=== PATIENT | male | born 1945 | race Caucasian/White ===

== ENCOUNTER → 2016-07-30 | Outpatient (CLI) | payer OTHER, MEDICARE ==
[~2016-07-30] MED LIST: ADVIN50/60 INH; ALBU1AER9 INH; ALLO300T2 PO; ASPI1TAB83 PO; ATV1 PO; CARV12.52 PO; CLR10 PO; DXY100 PO; FLUT0.0529 NAE; FURO40TA3 PO; GLIM2TAB2 PO; LCTXP OR; LEVO150T PO; LPT/20 PO; MIRALAX PO; NITR0.4S UT; NRN/300 PO; OLME1TAB11 PO; OMEP20TA PO; OXYC-57 PO; POTA10TA PO; PRED50TA PO; RXC5 PO; SITA50TA5 PO; VANC1INJ94 IV
== END | disposition home or self-care (01) ==
LOC: C.PATHSPEC 14:06
PROVIDERS: ATTEND Family Medicine
DX: L72.0 Epidermal cyst (principal)

== ENCOUNTER → 2016-10-12 | Outpatient (CLI) | payer OTHER, MEDICARE ==
[2016-10-12 13:56] LABS: ESTIMATED AVERAGE GLUCOSE 154 mg/dl; HA1C FLAG Normal (Normal)
[2016-10-12 15:03] LABS: ALKALINE PHOSPHATASE 70 U/L (45-117); ALT/SGPT 24 U/L (12-78); AST/SGOT 17 U/L (15-37); BLOOD UREA NITROGEN 23 mg/dl (7-18); BUN/CREATININE RATIO 16.3 (10-20); CALCIUM 8.3 mg/dl (8.5-10.1); CARBON DIOXIDE 29 mmol/L (21-32); CHLORIDE 106 mmol/L (98-107); CHOLESTEROL 115 mg/dl (0-200); CHOLESTEROL/HDL RATIO 3.3; GLUCOSE 129 mg/dl (70-99); HDL CHOLESTEROL 35 mg/dl; POTASSIUM 3.9 mmol/L (3.5-5.1); PROSTATE SPECIFIC ANTIGEN 0.571 ng/ml (0.000-4.000); SODIUM 141 mmol/L (136-145)
[2016-10-12 15:04] LABS: LDL CHOLESTEROL CALCULATED 38 mg/dl; MAGNESIUM 2.2 mg/dl (1.8-2.4); TRIGLYCERIDES 212 mg/dl (0-150); VERY LOW DENSITY LIPOPROT CALC 42 mg/dl
== END ==
LOC: C.LABMFLN 10:32
PROVIDERS: ATTEND Family Medicine
DX: R39.11 Hesitancy of micturition (principal); I25.10 Atherosclerotic heart disease of native coronary artery without angina pectoris; E11.9 Type 2 diabetes mellitus without complications; E03.9 Hypothyroidism, unspecified; E78.00 Pure hypercholesterolemia, unspecified

== ENCOUNTER → 2017-02-24 | Outpatient (CLI) | payer OTHER, MEDICARE ==
--- NOTE | 2017-03-02 12:17 | CODING QUERY NO DIAGNOSIS ---
TREATMENT RENDERED WITHOUT A DIAGNOSIS Dr. Martinez, To promote full compliance with coding requirements relating to patient care, physician participation is requested in all cases of embedded systems software engineer uncertainty. Please assist us with providing a diagnosis/symptom for the test(s) below: A diagnosis/symptom was not documented on your Order. A valid diagnosis/symptom is required to bill all insurances. Please remember that we are unable to code a diagnosis of rule out, probable, possible, questionable, or suspected. Tests that require a diagnosis: * GRAM STAIN, DIRECT SMEAR DIAGNOSIS: * M.I.C. SENSITIVITY DIAGNOSIS: * ID, CULTURE ISOLATE DIAGNOSIS: * CULTURE, BACTERIAL, ANY SOURCE DIAGNOSIS: * CULTURE, BACT., DEF; ANY SOURCE DIAGNOSIS: DATE OF SERVICE: 02/24/17 Provider Signature: Date: Thank you F[facility] Once completed, please kindly fax back to [phone] For questions please call [phone]
== END | disposition home or self-care (01) ==
LOC: C.LABSPEC 17:16
PROVIDERS: ATTEND Orthopaedic Surgery
DX: S61.011A Laceration without foreign body of right thumb without damage to nail, initial encounter (principal); X58.XXXA Exposure to other specified factors, initial encounter

== ENCOUNTER 2017-02-26 13:48 | Inpatient (IN) | payer OTHER, MEDICARE ==
[~2017-02-26] VITALS: Ht 177.8 cm; Wt 134.0 kg
[~2017-02-26 13:48] MED LIST changes: -DXY100 PO; -LCTXP OR; -PRED50TA PO; -VANC1INJ94 IV
[2017-02-26] MEDS ORDERED: GLUCAGON FOR INJ 1 MG VIAL SQ PRN (16:00)
[2017-02-26] MEDS ORDERED: MAGNESIUM HYDROXIDE SUSP 30 ML UDC PO PRN (16:00)
[2017-02-26] MEDS ORDERED: GLUCOSE 10 TABS/TUBE PO PRN (16:00)
[2017-02-26] MEDS ORDERED: ONDANSETRON INJ 2 MG/ML 2 ML VIAL IV PRN (16:00)
[2017-02-26] MEDS ORDERED: ALUMINUM/MAGNESIUM/SIMETH (MAALOX MAX) 30 ML UDC PO PRN (16:00)
[2017-02-26] MEDS ORDERED: DEXTROSE 50% 50 ML SYR IV PRN (16:00)
[2017-02-26] MEDS ORDERED: GLUCOSE 40% GEL 15 GM TUBE PO PRN (16:00)
[2017-02-26] MEDS ORDERED: NITROGLYCERIN 0.4 MG SL PER TAB CHARGE UT PRN (16:00)
[2017-02-26] MEDS ORDERED: FLUTICASONE PROPIONATE NA SPR 16 GM BTL NAE PRN (16:00)
[2017-02-26] MEDS ORDERED: ALBUTEROL HFA 8 GM INHALER INH PRN (16:00)
[2017-02-26] MEDS ORDERED: ACETAMINOPHEN 325 MG TAB PO PRN (16:00)
[2017-02-26] MEDS ORDERED: LORAZEPAM 1 MG TAB PO PRN (16:00)
--- NOTE | 2017-02-26 16:31 | History and Physical ---
History & Physical Date & Time of Service: Feb 26, 2017 at 16:30 Chief Complaint: Cellulitis Of Right Thumb And Hand Primary Care Physician: Christopher Lemon M.D. History of Present Illness Source: patient Mr. Whitt is a 71 y/o male with PMHx of T2DM, COPD, and CAD who is a direct admission from [facility] for R thumb cellulitis. Patient sustained a laceration to the thumb from a saw approx. around January 22. He initially presented to [facility] for suturing. He did sustain a ruptured extensor tendon that was repair. Unfortunately he developed infection and underwent further repair of the tendon. He was initially placed on Keflex and developed significant diarrhea and minimal improvement in erythema of the thumb. He was then placed on Bactrim without relief of symptoms. He underwent I& D on 02/24 which revealed MRSA in deep wound cultures. He is experiencing pain in the thumb that is relieved with [place]. He denies fever/chills, CP, SOB, abdominal pain, N/V, dysuria, constipation/diarrhea. Past Medical/Surgical History 1. T2DM 2. CAD - 3 vessel disease - multiple consultations but unable to stent 3. COPD 4. Possible CKD Stage III Family History Kidney disease MOTHER, , Age:82 Lung Cancer SISTER, Myocardial Infarction FATHER, , Age:83 SISTER, , Age:58 Ovarian Cancer SISTER, , Age:38 Social History Smoking Status: Former Smoker Smokeless Tobacco Use: No Alcohol Use: none Drug Use: none Marital Status: Housing status: lives with family Occupational Status: retired Immunizations History of Influenza Vaccine: Unknown History of Tetanus Vaccine?: Unknown History of Pneumococcal: Unknown History of Hepatitis B Vaccine: Unknown Multi-Drug Resistant Organisms History of MDRO: Yes Type of MDRO: MRSA Allergies Coded Allergies: Adenosine (Unverified Allergy, Severe, ANAPHYLAXIS, 12/20/14) BRONCHIAL SPASM/ANAPHALACTIC SHOCK Fentanyl (Unverified Allergy, Intermediate, SHORTNESS OF BREATH, 12/20/14) Levofloxacin (Unverified Allergy, Intermediate, FACIAL SWELLING, 12/20/14) Home Medications Scheduled Allopurinol (Zyloprim), 300 MG PO QAM Aspirin (Aspirin), 81 MG PO QPM Atorvastatin (Atorvastatin Calcium), 40 MG PO QPM Carvedilol (Coreg), 12.5 MG PO BID Fluticasone Prop/Salmeterol (Advair Diskus 500/50 60 Dose), 1 PUFF INH BID Furosemide (Lasix), 40 MG PO QAM Gabapentin (Neurontin), 300 MG PO TID Glimepiride (Glimepiride), 4 MG PO NOON/PM Levothyroxine Sodium (Synthroid), 150 MCG PO QPM Loratadine (Claritin), 10 MG PO QPM Nitroglycerin (Nitrostat), 0.4 MG UT PRN Olmesartan Medoxomil (Benicar), 20 MG PO QPM Omeprazole (Omeprazole), 40 MG PO QAM Potassium Chloride (K-Tabs), 10 MEQ PO QAM Sitagliptin-Metformin Hcl (Janumet), 1 TAB PO BID [Miralax], 1 DOSE PO NOON Scheduled PRN Albuterol Sulfate (Proair Hfa), 1 INHA INH Q4H PRN for PRN Fluticasone Propionate (Nasal) (Flonase), 1-2 SPRAYS DERRICK DAILY PRN for PRN Lorazepam (Lorazepam), 1 MG PO Q6H PRN for Anxiety Oxycodone HCl (Oxycodone HCl), 5-10 MG PO Q4H PRN for Pain Oxycodone/Acetaminophen 5MG/325MG (Percocet 5MG/325MG), 1 TABLET PO Q8H PRN for Pain Review of Systems Constitutional: No fever, No chills, No weakness, No fatigue ENT: No nasal symptoms, No sore throat Respiratory: No cough, No shortness of breath Cardiovascular: No chest pain, No palpitations Abdomen: + constipation (no BM x 2 days), No pain, No nausea, No vomiting, No diarrhea Musculoskeletal: + joint pain (R thumb), + swelling (bilateral lower extremities), No calf pain Genitourinary - Male: No dysuria Neurologic: No numbness/tingling Hematologic / Lymphatic: No abnormal bleeding/bruising, No clotting problems Physical Exam General Appearance: WD/WN, no apparent distress Head: normocephalic, atraumatic Eyes: sclerae normal ENT: hearing grossly normal Neck: supple, no JVD, trachea midline Respiratory/Chest: lungs clear, normal breath sounds, no respiratory distress, no accessory muscle use Cardiovascular: regular rate, rhythm, no gallop, no murmur Abdomen/GI: normal bowel sounds, non tender, soft Back: no CVA tenderness Extremities/Musculoskelatal: no calf tenderness, + swelling (bilateral lower extremity edema), + pertinent finding (R thumb with sutures in place; mildly warm to touch; erythema extending to proximal portion of thumb (site marked); serosang discharge from suture site; cap refill immediate; radial pulse 2+; neg snuffbox tenderness; splint in place) Neurologic/Psych: alert, oriented x 3 Skin: normal color, warm/dry Diagnostics Laboratory Results Results Past 24 Hours Test 02/26/17 15:59 02/26/17 16:16 Range/Units Microbiology Results 02/26/17 Blood Culture, Ordered Pending 02/26/17 Blood Culture, Ordered Pending Impression Assessment and Plan Mr. Whitt is a 71 y/o male with PMHx of T2DM, COPD, ASHVIN on night CPAP, Hypothyroidism, HTN, and CAD who is a direct admission from [facility] for R thumb cellulitis. R Thumb Cellulitis - MRSA and Extensor Tendon Rupture S/P Repair: Failed Keflex and Bactrim - Vancomycin per pharmacy dosing - hopeful for IV Abx with oral conversion - XR - R/O bony involvement - Consult ID - assistance with duration of therapy and oral conversion and outpatient F/U - Consult orthopedics - discussed with Cheryl Martinez product/industry consultant for weekend JUANA Superimposed on Possible CKD Stage III: - Hold Lasix and Losartan and gentle hydration with NSS at 80 mL/hr COPD without Exacerbation: - Duonebs and Albuterol inhaler PRN - Symbicort BID and Singulair 10 mg daily T2DM with Neuropathy: - Hold oral agents - Lantus 20 units SC HS and SSI - Gabapentin 400 mg TID and 200 mg HS HTN: - Coreg 12.5 mg BID Hypothyroidism: - Levothyroxine 150 mcg daily ASHVIN on Night CPAP: - to bring in CPAP and may use own meds CAD - 3 Vessel Disease: - Per patient, he has had multiple evaluations and his vessels cannot be stented - he states CABG couldn't be performed either? - states he has significant stenosis in the LAD vessel - Atorvastatin 40 mg daily - may benefit from high dose - Will hold ASA for now in case of need to do anything surgical but will need instituted as soon as possible given extensive disease DVT Prophylaxis: SCDs; no chemical prophylaxis at this time in case of surgical intervention Code Status: FULL RESUSCITATION Disposition: - IV Abx 1-2 days with hopeful oral conversion - D/C dependent on clinical improvement Attending Addendum: I have physically seen and examined this patient, have directed the physician assistants medical activities, and agree with the H&P as noted above with the following exceptions as noted. The patient is awake, alert and oriented 3, well-developed and well-nourished , normocephalic and atraumatic, lying in bed and in no acute distress. HEENT--PERRL, EOMI, mucous membranes and oropharynx dry. Neck--supple, no JVD or bruits, thyroid normal, trachea midline, no adenopathy. Heart--normal S1 and S2, no extra beats, no murmurs, rubs or gallops. Lungs--clear bilaterally with good air movement, no respiratory distress, no accessory muscle use. Abdomen--normal bowel sounds and soft, nontender and nondistended, no hernias or masses, no organomegaly. Extremities--no cyanosis, clubbing. Bilateral pretibial 1+ pitting edema. Right thumb with sutures in place mildly warm and erythematous with serous sanguinous drainage, splint in place. Dermatologic--normal except as above. Neurologic--cranial nerves II through XII grossly intact, motor and sensory examination normal. Rheumatologic--normal except for decreased range of motion right hand and thumb. Psychiatric--normal affect. Assessment and Plan: Right thumb MRSA cellulitis/status post extensor tendon rupture repair/failure of outpatient therapy with Keflex and Bactrim-- Vancomycin IV per pharmacokinetic dosing X-ray now to assess for bony involvement, may need bone scan and/or bone biopsy Infectious disease consulted Consult orthopedics Dr. Martinez CAD medical management-- Continue coreg 12.5 mg by mouth twice a day. Hold aspirin for possible procedure. Acute on chronic kidney injury/hypertension-- Hold Lasix and losartan. Normal saline at 80 ML's per hour Serial BMP and magnesium levels. COPD-- Continue Symbicort and Singulair Albuterol HFA 2 puffs 4 times a day when necessary Duonebs every 4 hours when necessary Diabetes mellitus/GPN-- Lantus 20 units subcutaneous at bedtime Accu-Cheks before meals and at bedtime with NovoLog coverage per scale Gabapentin 400 mg by mouth 3 times a day and 200 mg at bedtime Obstructive sleep apnea-- Will use home CPAP Level of Care Med/Surg Advanced Directives Existing Advance Directive: No Existing Living Will: No Existing Power of Vc++ Developer: No Resuscitation Status FULL RESUSCITATION VTE Prophylaxis VTE Risk Assessment Done? Y/N: Yes Risk Level: Moderate Given or contraindicated: T.E.D. Stockings, SCD's Social Service Consult None Apply
[2017-02-26] MEDS ORDERED: VANCOMYCIN INJ 2,750 MG in SODIUM CHLORIDE 0.9% 500ML 500 ML IV STA (16:33)
[2017-02-26 16:39] VITALS: BP 122/67; PULSE 76; TEMP 37; O2SAT 93; Ht 177.8 cm; Wt 134.0 kg
--- NOTE | 2017-02-26 16:44 | Progress Note ---
Progress Note Date of Service Feb 26, 2017. Progress Note ID Consult Dictated #[id number] A/P: 1. thumb post op infection -MRSA -Continue vanco for now -Blood cultures pending, for x ray r/o osteo -If x ray negative for osteo and cultures negative, would transition to po doxy 100mg po bid with food -Assess response to IV abx -thank you
[2017-02-26] MEDS ORDERED: VANCOMYCIN CONSULT ACTIVE PRN (16:45)
[2017-02-26 17:24] LABS: HEMATOCRIT 37.8 % (42-52); MEAN CELL VOLUME 95.7 fL (80-100); MEAN CORPUSCULAR HEMOGLOBIN 30.6 pg (25-34); MEAN PLATELET VOLUME 9.5 fL (7.4-10.4); PLATELET COUNT 197 K/uL (130-400); RED BLOOD COUNT 3.95 M/uL (4.7-6.1); WHITE BLOOD COUNT 6.93 K/uL (4.8-10.8)
[2017-02-26 17:44] LABS: BUN/CREATININE RATIO 8.9 (10-20); CALCIUM 9.4 mg/dl (8.5-10.1); CREATININE 2.1 mg/dl (0.60-1.40); POTASSIUM 3.8 mmol/L (3.5-5.1); URIC ACID 5.4 mg/dl (2.6-7.2)
[2017-02-26 17:47] LABS: ALB/GLOB RATIO 0.8 (0.9-2)
[2017-02-26] MEDS: POLYETHYLENE (MIRALAX) 17 GM PACK PO PRN (18:41)
[2017-02-26] MEDS: HYDROCODONE/ACETAMOPHEN 5/325MG TAB PO PRN (18:41)
[2017-02-26] MEDS: GABAPENTIN 400 MG CAP PO SCH (18:47)
[2017-02-26] MEDS: INSULIN ASPART 100 UNITS/ML 3 ML PEN SC SCH ×2 (18:53→21:00)
[2017-02-26] MEDS ORDERED: HydrALAZINE HCL 20 MG/ML VIAL IV. PRN (19:15)
[2017-02-26] MEDS ORDERED: ALBUT/IPRATROP 3MG/0.5MG NEB 3 ML VIAL INH PRN (20:00)
[2017-02-26] MEDS ORDERED: ALBUT/IPRATROP 3MG/0.5MG NEB 3 ML VIAL INH SCH (20:00)
--- NOTE | 2017-02-26 20:04 | Pharmacy Progress Note ---
Pharmacy Abx Initial Consult Date of Service Feb 26, 2017. Pharmacy Dosing Scope Date of Consult: 02/26/17 Consultation requested by: Ila Victor Pharmacy is consulted to initiate Vancomycin IV dosing therapy, order appropriate labs and adjust drug dose/frequency. Subjective The patient is a 71 year old male admitted on Feb 26, 2017 at 14:57. Objective Height (Feet): 5 Height (Inches): 10.00 Weight (Kilograms): 134.000 Vital Signs (Past 12Hrs) Vital Signs Past 12 Hours Date Time Temp Pulse Resp B/P (MAP) Pulse Ox O2 Delivery O2 Flow Rate FiO2 02/26/17 16:39 37.0 76 14 122/67 93 Room Air Lab Results (24Hrs) Laboratory Tests (24 Hours) Test 02/26/17 17:11 White Blood Count 6.93 K/uL (4.8-10.8) Micro Results Date/Time Source Procedure Growth Status 02/26/17 17:27 Blood Blood Culture Pending Received 02/26/17 17:10 Blood Blood Culture Pending Received Risk Factors for Resistance * History of infection with a multidrug-resistant organism: MRSA (deep drainage , thumb - 02/24/17) * Antimicrobial use within the last 90 days -- outpatient Keflex and Bactrim Assessment & Plan Assessment 71 year old male on IV Vancomycin for MRSA cellulitis of R hand and thumb * Patient underwent I&D on 02/24/17 * Recent outpatient treatment with Keflex (did not tolerate due to GI sxs) and Bactrim * ID on consult; awaiting X-ray to determine if any bone involvement * Patient appears to be in acute kidney failure; sCr = 2.1 mg/dL today with estimated CrCl ~44 mL/min. Baseline sCr ~1.4 mg/dL. Anticipate that renal function will be rapidly changing. Therefore, unable to safely initiate maintenance regimen at this time. Will give a one-time loading dose and follow random levels until renal function normalizes. Plan Vancomycin IV * Loading dose: 2750 mg (20 mg/kg) * Goal trough level for cellulitis r/o osteomyelitis : ~15 mcg/mL (up to 20 mcg/ mL if osteomyelitis confirmed) * Random level ordered for 02/27 with AM labs * Repeat dosing to be determined based on random level Pharmacy will continue to follow and will adjust dose/frequency as necessary. Thank you.
[2017-02-26] MEDS ORDERED: FLUTICASONE/SALMETEROL (ADVAIR) 500/50 INH 14 PUFF INH SCH (21:00)
[2017-02-26] MEDS ORDERED: OLMESARTAN MEDOXOMIL 20 MG TAB PO SCH (21:00)
[2017-02-26] MEDS ORDERED: LEVOTHYROXINE 150 MCG TAB PO SCH (21:00)
[2017-02-26] MEDS ORDERED: GABAPENTIN 300 MG CAP PO SCH (21:00)
[2017-02-26] MEDS ORDERED: FUROSEMIDE 40 MG TAB PO SCH (21:00)
[2017-02-26] MEDS ORDERED: ATORVASTATIN 40 MG TAB PO SCH (21:00)
--- NOTE | 2017-02-26 21:12 | DIAGNOSTIC IMAGING REPORT ---
RIGHT AND 3 VIEWS HISTORY: Right thumb swelling. R Thumb Cellulitis - R/O bony involvement Right COMPARISON: None. FINDINGS: There is no fracture or dislocation. Soft tissue swelling within the right thumb. No underlying cortical destruction to suggest osteomyelitis. Questionable linear lucency at the head of the proximal phalanx of the thumb may be due to the overlapping bony structures. No radiopaque foreign bodies. IMPRESSION: Soft tissue swelling within the right thumb consistent with a cellulitis. No underlying bony destruction to suggest osteomyelitis. Electronically signed by: Talib Alvarez M.D. 02/26/2017 9:11 PM Dictated Date/Time: 02/26/2017 9:07 PM
[2017-02-26] MEDS: CARVEDILOL 12.5 MG TAB PO SCH (21:52)
[2017-02-26] MEDS: POTASSIUM CHLORIDE 10 MEQ TABCR PO SCH (21:52)
[2017-02-26] MEDS: ATORVASTATIN 40 MG TAB PO SCH (21:52)
[2017-02-26] MEDS: MONTELUKAST SOD 10 MG TAB PO SCH (21:52)
[2017-02-26] MEDS: DOCUSATE SODIUM 100 MG CAP PO SCH (21:52)
[2017-02-26] MEDS: LORATADINE 10 MG TAB PO SCH (21:52)
[2017-02-26] MEDS: GABAPENTIN 100 MG CAP PO SCH (21:53)
[2017-02-26] MEDS: INSULIN GLARGINE SOLOSTAR 100 UNITS/ML 3 ML PEN SC SCH (21:55)
[2017-02-26] MEDS: BUDESONIDE/FORMOTEROL FUMARATE 160/4.5 60 PUFFS/INHALER INH SCH (21:57)
[2017-02-26] MEDS: SODIUM CHLORIDE 0.9% 1000ML 1,000 ML IV SCH (21:57)
[2017-02-26 23:44] VITALS: BP 153/67; PULSE 83; TEMP 36.7; O2SAT 96
[2017-02-27] MEDS: HYDROCODONE/ACETAMOPHEN 5/325MG TAB PO PRN ×2 (00:21→21:22)
--- NOTE | 2017-02-27 01:22 | INFECT. DISEASE CONSULTATION ---
DATE OF CONSULTATION: 02/26/2017 REQUESTING PHYSICIAN: Dr. Massey. HISTORY OF PRESENT ILLNESS: This is a 71-year-old gentleman who was admitted from the orthopedic office after he had worsening finger infection. He states that sometime ago he cut his left thumb on a saw. He did have tendon damage. He was seen by Dr. Martinez and this was repaired some weeks ago. Subsequent to that, he was having increasing erythema and an open wound. After he had this tendon repair, he had continued drainage from the wound and had followed up with orthopedic surgery a few days ago. At that time, he underwent an I&D in the office and a culture was obtained. This culture is dated February 24 and is growing MRSA. He was placed on Bactrim, but is not having significant improvement. He presented today for followup and was subsequently admitted for admission and IV antibiotics for cellulitis with failure of outpatient therapy with Bactrim. He was tolerating Bactrim well. He denies any fevers or chills at home. He states he does not have any worsening pain but still has significant pain. He denies cough, shortness breath, nausea, vomiting, diarrhea or abdominal pain. All remaining review of systems are unremarkable except are as noted. He is placed on vancomycin here empirically. White blood cell count is pending. All laboratory studies are pending, no micro has been obtained; however, blood cultures are ordered and pending. Again, his culture from the is growing MRSA. It is sensitive to Bactrim. He has not had any imaging of his hand, but an x-ray will be ordered today. PAST MEDICAL HISTORY: Type 2 diabetes, hypertension, COPD, coronary artery disease, hypothyroidism, and gout. PAST SURGICAL HISTORY: Significant for back surgery, shoulder surgery, cataract repair, heart catheterization, knee surgeries knee replacement, shoulder surgery and thyroid removal. ALLERGIES: INCLUDE ADENOSINE, FENTANYL AND LEVAQUIN. FAMILY HISTORY: Noncontributory. SOCIAL HISTORY: Unremarkable. CURRENT MEDICATIONS: Include allopurinol, Protonix, Synthroid, Cozaar, Lipitor, Coreg, Advair, Claritin, Lipitor, Lasix, Neurontin, potassium, Symbicort, Singulair, DuoNebs, vancomycin, Tylenol, Maalox, MiraLax and Zofran. PHYSICAL EXAMINATION: VITAL SIGNS: He is afebrile. Vital signs are currently pending. GENERAL: He is out of bed in the chair. He is in no acute distress. HEENT: Mucous membranes are moist. HEART: Regular. LUNGS: Clear bilaterally. ABDOMEN: Soft, nontender, nondistended. EXTREMITIES: There is no edema. Examination of the left thumb reveals sutures to be intact. There is erythema in the thumb, but has not progressed to the dorsal. The hand range of motion is within normal limits. Sensation is intact. There is tenderness to palpation. There is minimal serous weeping from the incision itself. There is no nakul pus. ALL LABORATORY STUDIES: pending including a CBC and chemistry panel. Blood cultures are pending. IMAGING: Pending. ASSESSMENT AND PLAN: A postoperative wound infection with methicillin-resistant staphylococcus aureus. He will be continued empirically on vancomycin pending the results of blood cultures as well as imaging to rule out any associated osteomyelitis. Certainly, if he has improvement, he could be transitioned to oral antibiotics. My recommendation would be deescalating to doxycycline 100 mg by mouth twice daily with food, if there is no evidence of osteo and he does have clinical improvement over the next 24-48 hours. We will follow along with you. Thank you for this consultation. MEHDI
[2017-02-27] MEDS: LEVOTHYROXINE 150 MCG TAB PO SCH (05:36)
[2017-02-27 07:21] VITALS: BP 131/77; PULSE 65; TEMP 36.6; O2SAT 94
[2017-02-27] MEDS: SODIUM CHLORIDE 0.9% 1000ML 1,000 ML IV SCH ×2 (07:35→21:29)
[2017-02-27] MEDS: BUDESONIDE/FORMOTEROL FUMARATE 160/4.5 60 PUFFS/INHALER INH SCH ×2 (07:36→21:29)
[2017-02-27 07:38] LABS: BUN/CREATININE RATIO 10.6 (10-20); CREATININE 1.8 mg/dl (0.60-1.40)
[2017-02-27] MEDS: DOCUSATE SODIUM 100 MG CAP PO SCH ×2 (07:38→21:14)
[2017-02-27] MEDS: CARVEDILOL 12.5 MG TAB PO SCH ×2 (07:38→21:14)
[2017-02-27] MEDS: POTASSIUM CHLORIDE 10 MEQ TABCR PO SCH ×2 (07:39→21:15)
[2017-02-27] MEDS: PANTOprazole SOD 40 MG TAB PO SCH (07:40)
[2017-02-27] MEDS: GABAPENTIN 400 MG CAP PO SCH ×3 (07:40→21:14)
[2017-02-27] MEDS: ALLOPURINOL 300 MG TAB PO SCH (07:41)
[2017-02-27 07:49] LABS: HEMATOCRIT 33.8 % (42-52); MEAN CELL VOLUME 94.2 fL (80-100); MEAN CORPUSCULAR HEMOGLOBIN 30.9 pg (25-34); MEAN CORPUSCULAR HGB CONC 32.8 g/dl (32-36); MEAN PLATELET VOLUME 9.6 fL (7.4-10.4); PLATELET COUNT 175 K/uL (130-400); RED BLOOD COUNT 3.59 M/uL (4.7-6.1); WHITE BLOOD COUNT 4.54 K/uL (4.8-10.8)
[2017-02-27 08:49] VITALS: PULSE 69; O2SAT 96
[2017-02-27] MEDS ORDERED: LOSARTAN POTASSIUM 50 MG TAB PO SCH (09:00)
[2017-02-27] MEDS ORDERED: FUROSEMIDE 40 MG TAB PO SCH ×2 (09:00)
[2017-02-27] MEDS ORDERED: POTASSIUM CHLORIDE 10 MEQ TABCR PO SCH (09:00)
[2017-02-27] MEDS: INSULIN ASPART 100 UNITS/ML 3 ML PEN SC SCH ×4 (10:40→21:17)
[2017-02-27 15:24] VITALS: BP 122/74; PULSE 63; TEMP 36.7; O2SAT 95
[2017-02-27] MEDS ORDERED: VANCOMYCIN INJ 1,750 MG in SODIUM CHLORIDE 0.9% 500ML 500 ML IV SCH (17:00)
--- NOTE | 2017-02-27 17:10 | Progress Note ---
Subjective Date of Service: Feb 27, 2017. Subjective Pt evaluation today including: conversation w/ patient, physical exam, lab review, review of inpatient medication list Review of Systems Constitutional: No see HPI, No fever, No chills, No sweats, No weight loss, No weakness, No fatigue, No problem reported Eyes: No see HPI, No worsening of vision, No eye pain, No redness, No discharge , No diplopia, No problem reported ENT: No see HPI, No hearing loss, No unusual epistaxis, No nasal symptoms, No sore throat, No tinnitus, No dental problems, No trouble swallowing, No problem reported Respiratory: No see HPI, No cough, No sputum, No wheezing, No shortness of breath, No dyspnea on exertion, No dyspnea at rest, No hemoptysis, No problem reported Cardiac: No see HPI, No chest pain, No orthopnea, No PND, No edema, No claudication, No palpitations, No problem reported Abdomen: No see HPI, No pain, No nausea, No vomiting, No diarrhea, No constipation, No GI bleeding, No problem reported Musculoskeletal: No see HPI, No joint pain, No muscle pain, No swelling, No calf pain, No problem reported Male : No see HPI, No dysuria, No urinary frequency, No incontinence, No nocturia more than once/night, No slowing stream, No hematuria, No sexual dysfunction, No problem reported Neurologic: No see HPI, No memory loss, No paralysis, No weakness, No numbness/ tingling, No vertigo, No balance problems, No problem reported Psychiatric: No see HPI, No depression symptoms, No anhedonism, No anxiety, No insomnia, No substance abuse, No problem reported Heme: No see HPI, No abnormal bleeding/bruising, No clotting problems, No swollen lymph nodes, No night sweats, No problem reported Endo: No see HPI, No fatigue, No excessive thirst, No excessive urination, No problem reported Skin: No see HPI, No rash, No itch, No new/changing skin lesions, No color change, No bleeding, No problem reported Objective Vital Signs Date Time Temp Pulse Resp B/P (MAP) Pulse Ox O2 Delivery O2 Flow Rate FiO2 02/27/17 15:24 36.7 63 18 122/74 (90) 95 Room Air 02/27/17 08:49 69 18 96 Room Air 02/27/17 07:30 Room Air CPAP 02/27/17 07:21 36.6 65 18 131/77 (95) 94 Room Air 02/27/17 00:15 Room Air CPAP 02/26/17 23:44 36.7 83 16 153/67 (95) 96 BiPAP 02/26/17 16:39 37.0 76 14 122/67 93 Room Air Physical Exam General Appearance: no apparent distress, + obese ENT: normal ENT inspection, hearing grossly normal Neck: supple Respiratory/Chest: chest non-tender, lungs clear, normal breath sounds, no respiratory distress, no accessory muscle use Cardiovascular: regular rate, rhythm, no edema, no gallop, no JVD, no murmur Abdomen: normal bowel sounds, non tender, soft, no organomegaly Extremities: normal range of motion, non-tender, normal inspection, no pedal edema Neurologic/Psychiatric: police detention attendant II-XII nml as tested, no motor/sensory deficits, alert, normal mood/affect, oriented x 3 Skin: normal color, warm/dry, + rash Laboratory Results Last 24 Hours Test 02/26/17 17:10 02/26/17 17:11 02/26/17 17:17 02/26/17 19:48 Sodium Level 137 mmol/L Potassium Level 3.8 mmol/L Chloride Level 101 mmol/L Carbon Dioxide Level 27 mmol/L Anion Gap 9.0 mmol/L Blood Urea Nitrogen 19 mg/dl Creatinine 2.10 mg/dl Est Creatinine Clear Calc Drug Dose 43.8 ml/min Estimated GFR () 35.4 Estimated GFR (Non- 30.5 BUN/Creatinine Ratio 8.9 Random Glucose 229 mg/dl Uric Acid 5.4 mg/dl Calcium Level 9.4 mg/dl Total Bilirubin 0.3 mg/dl Aspartate Amino Transf (AST/SGOT) 19 U/L Alanine Aminotransferase (ALT/SGPT) 22 U/L Alkaline Phosphatase 71 U/L Total Protein 7.7 gm/dl Albumin 3.5 gm/dl Globulin 4.2 gm/dl Albumin/Globulin Ratio 0.8 White Blood Count 6.93 K/uL Red Blood Count 3.95 M/uL Hemoglobin 12.1 g/dL Hematocrit 37.8 % Mean Corpuscular Volume 95.7 fL Mean Corpuscular Hemoglobin 30.6 pg Mean Corpuscular Hemoglobin Concent 32.0 g/dl RDW Standard Deviation 47.6 fL RDW Coefficient of Variation 13.6 % Platelet Count 197 K/uL Mean Platelet Volume 9.5 fL Bedside Glucose 228 mg/dl 143 mg/dl Test 02/27/17 06:43 02/27/17 08:14 02/27/17 12:14 White Blood Count 4.54 K/uL Red Blood Count 3.59 M/uL Hemoglobin 11.1 g/dL Hematocrit 33.8 % Mean Corpuscular Volume 94.2 fL Mean Corpuscular Hemoglobin 30.9 pg Mean Corpuscular Hemoglobin Concent 32.8 g/dl RDW Standard Deviation 46.7 fL RDW Coefficient of Variation 13.5 % Platelet Count 175 K/uL Mean Platelet Volume 9.6 fL Sodium Level 140 mmol/L Potassium Level 4.0 mmol/L Chloride Level 106 mmol/L Carbon Dioxide Level 28 mmol/L Anion Gap 6.0 mmol/L Blood Urea Nitrogen 19 mg/dl Creatinine 1.80 mg/dl Est Creatinine Clear Calc Drug Dose 51.1 ml/min Estimated GFR () 42.6 Estimated GFR (Non- 36.8 BUN/Creatinine Ratio 10.6 Random Glucose 147 mg/dl Calcium Level 9.0 mg/dl Random Vancomycin Level 15.1 mcg/ml Bedside Glucose 150 mg/dl 190 mg/dl Assessment and Plan 71 years old man with Hxof DMII, COPD, HTN, CAD, ASHVIN and hypothyoidism recently had a table saw accident on his R thumb required multiple surgical procedures (repair of tendon followed by wound infection and I&D) presented for IV Abx R thumb post surgical wound infection / MRSA continue Vanco IV Dr. Steinberg consult appreciated Xray riht hand ordered to R/O osteo considering oral Doxy. Consult orthopedics / Dr. Martinez JUANA / CKD stage III continue holding nephrotoxic / lasix/losartan COPD w/o exacerbation continue Nebulizers ordered his home rescue inhaler DMII insulin req continue insulin / gabapentin for neuropathy HTN continue Coreg ASHVIN/ continue CPAP CAD/Dyslipidemia as per patient inoperable continue lipitor hawa with holding ASA for now Hypothyroidism / continue synthroid DVT prophylaxis start heparin SQ Code Status: FULL RESUSCITATION
[2017-02-27 18:31] LABS: PARTIAL THROMBOPLASTIN RATIO 1.2
[2017-02-27] MEDS: MONTELUKAST SOD 10 MG TAB PO SCH (21:14)
[2017-02-27] MEDS: ATORVASTATIN 40 MG TAB PO SCH (21:14)
[2017-02-27] MEDS: LORATADINE 10 MG TAB PO SCH (21:14)
[2017-02-27] MEDS: INSULIN GLARGINE SOLOSTAR 100 UNITS/ML 3 ML PEN SC SCH (21:18)
[2017-02-27] MEDS: ALBUTEROL HFA 8 GM INHALER INH PRN (21:21)
[2017-02-27] MEDS: HEPARIN SOD 5000 UNIT/0.5 ML CARP SQ SCH (21:21)
--- NOTE | 2017-02-27 22:47 | ORTHOPEDIC CONSULTATION ---
DATE OF CONSULTATION: 02/27/2017 CHIEF COMPLAINT: Right thumb pain and swelling. HISTORY OF PRESENT ILLNESS: Edis is a patient well known to me. He is 2 days status post irrigation and debridement of a laceration on the dorsal aspect of the thumb with tendon repair. He presents with cultures documenting MRSA and he presents with persistent pain and swelling with worsening redness over the thumb. He was admitted from our office due to failure of outpatient management of infection. PAST MEDICAL HISTORY: Includes chronic kidney disease, COPD, type 2 diabetes with neuropathy. MEDICATIONS: Include Lantus, gabapentin, and he was on Bactrim as an outpatient. Infectious disease has been consulted and he has been empirically placed on vancomycin. OBJECTIVE: Right thumb exam shows decreased erythema compared to prior markings. I did not pick any purulent drainage. He has negative [place] signs. Surgical incision is clean, dry and intact. Three views of the right hand does not show evidence of acute fracture or dislocation. Soft tissue swelling is seen. No evidence of osteomyelitis. ASSESSMENT: 1. Hospital day 1 for right thumb infection. 2. Diabetes. 3. Chronic kidney disease. PLAN: At this point in time, I do not see any surgical indications. He does appear to have fairly low response at this point to intravenous antibiotics. We will defer to infectious disease appropriate antibiotic course. We will continue to follow while in the hospital. He does exhibit clinical improvement over the past 24 hours.
[2017-02-27 23:14] VITALS: BP 141/84; PULSE 76; TEMP 36.5; O2SAT 94
[2017-02-27] MEDS: GABAPENTIN 100 MG CAP PO SCH (23:34)
[2017-02-28] MEDS: HYDROCODONE/ACETAMOPHEN 5/325MG TAB PO PRN (03:01)
[2017-02-28] MEDS: LEVOTHYROXINE 150 MCG TAB PO SCH (05:27)
[2017-02-28 06:26] LABS: BASO % 0.2 %; BASO ABS # 0.01 K/uL (0-0.2); COMPLETE YES; EOS % 4.7 %; HEMATOCRIT 33.4 % (42-52); IG% 0.9 %; LYMPH % 27.4 %; LYMPH ABS # 1.17 K/uL (1.2-3.4); MEAN CELL VOLUME 94.9 fL (80-100); MEAN CORPUSCULAR HEMOGLOBIN 30.1 pg (25-34); MEAN CORPUSCULAR HGB CONC 31.7 g/dl (32-36); MEAN PLATELET VOLUME 9.1 fL (7.4-10.4); MONO % 5.9 %; NEUT % 60.9 %; PLATELET COUNT 159 K/uL (130-400); RED BLOOD COUNT 3.52 M/uL (4.7-6.1); WHITE BLOOD COUNT 4.27 K/uL (4.8-10.8)
[2017-02-28 07:14] LABS: CREATININE 1.4 mg/dl (0.60-1.40)
[2017-02-28 07:28] VITALS: BP 139/71; PULSE 66; TEMP 36.4; O2SAT 92
--- NOTE | 2017-02-28 08:11 | Orthopedic Progress Note ---
Orthopedic Progress Note Date of Service Feb 28, 2017. Subjective Reports: feeling well Additional Notes: PATIENT STATES HIS THUMB IS FEELING BETTER. REDNESS IS IMPROVED. HE DID BUMP IT ON THE TABLE LAST NIGHT CAUSING AN INCREASE IN PAIN BUT WAS RELIEVED WITH NORCO. Objective N/V intact, capillary refill less than 2 sec., dressing C/D/I, A&O x3 Date Time Temp Pulse Resp B/P (MAP) Pulse Ox O2 Delivery O2 Flow Rate FiO2 02/28/17 07:28 36.4 66 18 139/71 (93) 92 Room Air 02/27/17 23:45 Room Air 02/27/17 23:14 36.5 76 16 141/84 (103) 94 Room Air 02/27/17 17:20 Room Air 02/27/17 15:24 36.7 63 18 122/74 (90) 95 Room Air 02/27/17 08:49 69 18 96 Room Air Laboratory Results 24 Hours: Test 02/27/17 18:11 02/28/17 06:04 Prothromb Time International Ratio 1.0 Prothrombin Time 11.0 SECONDS White Blood Count 4.27 K/uL Red Blood Count 3.52 M/uL Hemoglobin 10.6 g/dL Hematocrit 33.4 % Mean Corpuscular Volume 94.9 fL Mean Corpuscular Hemoglobin 30.1 pg Mean Corpuscular Hemoglobin Concent 31.7 g/dl Platelet Count 159 K/uL Mean Platelet Volume 9.1 fL Neutrophils (%) (Auto) 60.9 % Lymphocytes (%) (Auto) 27.4 % Monocytes (%) (Auto) 5.9 % Eosinophils (%) (Auto) 4.7 % Basophils (%) (Auto) 0.2 % Neutrophils # (Auto) 2.60 K/uL Lymphocytes # (Auto) 1.17 K/uL Monocytes # (Auto) 0.25 K/uL Eosinophils # (Auto) 0.20 K/uL Basophils # (Auto) 0.01 K/uL Assessment & Plan Assessment: RIGHT THUMB CELLULITIS. Plan: SPOKE WITH PHARMACY. WILL CONTINUE ANOTHER DOSE OF IV VANCO TODAY. NO EVIDENCE OF OSTEO, WILL LIKELY DC HOME ON DOXY PER ID. NO SURGICAL INTERVENTION NEEDED AT THIS TIME PER DR. VILLALOBOS.
--- NOTE | 2017-02-28 08:14 | Consultant Recommendations ---
Digital Media Buyer Recommendations Date of Service Feb 28, 2017. Digital Media Buyer Recommendations FOLLOW UP WITH DR. VILLALOBOS IN 7-10 DAYS [phone] KEEP DRESSING CLEAN AND DRY ANTIBIOTICS PER DR. ROCK RECOMMENDATIONS.
[2017-02-28] MEDS: SODIUM CHLORIDE 0.9% 1000ML 1,000 ML IV SCH ×2 (08:36→20:42)
[2017-02-28] MEDS: ALBUTEROL HFA 8 GM INHALER INH PRN ×2 (08:37→18:00)
[2017-02-28] MEDS: BUDESONIDE/FORMOTEROL FUMARATE 160/4.5 60 PUFFS/INHALER INH SCH ×2 (08:37→20:35)
[2017-02-28] MEDS: ALLOPURINOL 300 MG TAB PO SCH (08:38)
[2017-02-28] MEDS: POTASSIUM CHLORIDE 10 MEQ TABCR PO SCH ×2 (08:38→20:46)
[2017-02-28] MEDS: PANTOprazole SOD 40 MG TAB PO SCH (08:38)
[2017-02-28] MEDS: GABAPENTIN 400 MG CAP PO SCH ×3 (08:38→20:46)
[2017-02-28] MEDS: CARVEDILOL 12.5 MG TAB PO SCH ×2 (08:40→20:46)
[2017-02-28] MEDS: DOCUSATE SODIUM 100 MG CAP PO SCH ×2 (08:41→20:44)
[2017-02-28] MEDS: INSULIN ASPART 100 UNITS/ML 3 ML PEN SC SCH ×4 (08:47→21:59)
[2017-02-28] MEDS: HEPARIN SOD 5000 UNIT/0.5 ML CARP SQ SCH ×2 (08:47→21:57)
[2017-02-28] MEDS ORDERED: VANCOMYCIN INJ 1,500 MG in SODIUM CHLORIDE 0.9% 500ML 500 ML IV SCH (10:00)
[2017-02-28] MEDS ORDERED: LCTXP OR (11:01)
[2017-02-28] MEDS ORDERED: VANC1INJ94 IV (11:01)
--- NOTE | 2017-02-28 11:06 | Discharge Instructions ---
Discharge Instructions Date of Service Feb 28, 2017. Admission Reason for Admission: Cellulitis Of Right Thumb And Hand Discharge Discharge Diagnosis / Problem: right thumb cellulitis Discharge Goals Goal(s): Decrease discomfort Activity Recommendations Activity Limitations: resume your previous activity . Instructions / Follow-Up Instructions / Follow-Up Follow up with Dr. Martinez in 7-10 days wound care as instructed by Dr. Martinez ; dry sterile dressing daily Please obtain stat trough level daily prior to vanco dose, inform pharmacy who is on consult to adjust dose Current Hospital Diet Patient's current hospital diet: Diabetes Type 2 Diet, AHA Diet (Heart Healthy) Discharge Diet Recommended Diet: AHA Diet (Heart Healthy), Diabetes Type 2 Diet Fluid Restriction: 1800 ml (7 cups) Pending Studies Studies pending at discharge: yes List of pending studies: Please obtain stat trough level daily prior to vanco dose, inform pharmacy who is on consult to adjust dose Laboratory Results Hemoglobin A1c Test 02/28/17 06:04 Range/Units Medical Emergencies . Who to Call and When: Medical Emergencies: If at any time you feel your situation is an emergency, please call 911 immediately. . Non-Emergent Contact Non-Emergency issues call your: Primary Care Provider, Surgeon Call Non-Emergent contact if: you have a fever, your pain is not controlled, wound has increased drainage, wound has increased redness, wound has increased pain . . "Provider Documentation" section prepared by Javi Giron. . Tugboat Mate Recommendations Tugboat Mate Recommendations: FOLLOW UP WITH DR. MARTINEZ IN 7-10 DAYS [phone] KEEP DRESSING CLEAN AND DRY ANTIBIOTICS PER DR. ROCK RECOMMENDATIONS. VTE Core Measure Inpt VTE Proph given/why not?: Aleksandr Hartley, SCD's
--- NOTE | 2017-02-28 12:59 | Pharmacy Progress Note ---
Pharmacy Abx Dose Progress Nt Date of Service Feb 28, 2017. Pharmacy Dosing Scope The patient is currently receiving the following antimicrobial agents per Pharmacy consult: Vancomycin dosing based on random levels due to impaired/unstable renal function Objective Height (Feet): 5 Height (Inches): 10.00 Weight (Kilograms): 134.000 Vital Signs (Past 12Hrs) Vital Signs Past 12 Hours Date Time Temp Pulse Resp B/P (MAP) Pulse Ox O2 Delivery O2 Flow Rate FiO2 02/28/17 07:28 36.4 66 18 139/71 (93) 92 Room Air Lab Results (24Hrs) Item Value Date Time Random Vancomycin Level 15.1 mcg/ml 02/27/17 0643 Random Vancomycin Level 13.3 mcg/ml 02/28/17 0604 Laboratory Tests (24 Hours) Test 02/28/17 06:04 White Blood Count 4.27 K/uL (4.8-10.8) L Red Blood Count 3.52 M/uL (4.7-6.1) L Hemoglobin 10.6 g/dL (14.0-18.0) L Hematocrit 33.4 % (42-52) L Mean Corpuscular Volume 94.9 fL (80-100) Mean Corpuscular Hemoglobin 30.1 pg (25-34) Mean Corpuscular Hemoglobin Concent 31.7 g/dl (32-36) L Platelet Count 159 K/uL (130-400) Mean Platelet Volume 9.1 fL (7.4-10.4) Neutrophils (%) (Auto) 60.9 % Lymphocytes (%) (Auto) 27.4 % Monocytes (%) (Auto) 5.9 % Eosinophils (%) (Auto) 4.7 % Basophils (%) (Auto) 0.2 % Neutrophils # (Auto) 2.60 K/uL (1.4-6.5) Lymphocytes # (Auto) 1.17 K/uL (1.2-3.4) L Monocytes # (Auto) 0.25 K/uL (0.11-0.59) Eosinophils # (Auto) 0.20 K/uL (0-0.5) Basophils # (Auto) 0.01 K/uL (0-0.2) Micro Results Date/Time Source Procedure Growth Status 02/26/17 17:27 Blood Blood Culture - Preliminary NO GROWTH TO DATE. Resulted 02/26/17 17:10 Blood Blood Culture - Preliminary NO GROWTH TO DATE. Resulted Item Value Date Time Gram Stain - Final Resulted 02/24/17 1451 Drainage-Deep Thumb , Right RUN DATE: 02/28/17 [facility] LAB PAGE 1 RUN TIME: 832 Specimen Inquiry PATIENT: HEMA RIVERA LOC: [facility] U # : [id number] AGE/SX: 71/M ROOM: REG : 02/24/[address]: Orlando Martinez : 1945 BED: DIS : STATUS: REG CLI TLOC: SPEC #: [id number] ANAHY: 02/24/17 STATUS: RES REQ #: [id number] RECD: 02/24/[address]: Orlando Martinez MD SOURCE: DRAIN-DEEP ENTR: 02/24/17 [facility] DR: Christopher Lemon M.D. [facility]: Kiana GUERRA ORDERED: AER/RICK CULTSMR Procedure Result Verified Site GRAM STAIN Final 02/25/17-7682 RESULT MANY WBCs SEEN NO ORGANISMS SEEN OR AER/RICK CULT Preliminary 02/28/17-832 Organism 1 STAPHYLOCOCCUS AUREUS QUANITY FEW SENS SENSITIVITY TO FOLLOW ANAS NO ANAEROBES ISOLATED. SENSITIVITY RESULT INDICATES A METHICILLIN RESISTANT STAPH. AUREUS. PHONED TO DR MARTINEZ OFFICE (DOTTY Cunningham) ON 02/26/17 AT 0919 BY Lora Ragland. Results were verbalized back to [facility]. RESULTS WERE ALSO CALLED TO [facility] INFECTION CONTROL ANSWERING MACHINE ON 02/26/17 BY [facility]. 1. STAPHYLOCOCCUS AUREUS Target Route Dose RX AB Cost M.I.C. IQ ------ ----- ------ -- ------ -------- - ------ TRIMET/SULFA S <=0.5/ 9.5 * OXACILLIN R * >2 VANCOMYCIN S 2 ERYTHROMYCIN R >4 TETRACYCLINE S <=4 CLINDAMYCIN S <=0.5 DAPTOMYCIN S 1 RIFAMPIN S <=1 S = SENSITIVE I = INTERMEDIATE R = RESISTANT Risk Factors for Resistance * History of infection with a multidrug-resistant organism: MRSA (deep drainage , thumb - 02/24/17) * Antimicrobial use within the last 90 days -- outpatient Keflex and Bactrim Assessment & Plan Assessment * 71 year old male on IV Vancomycin for MRSA cellulitis of R hand and thumb * Day #3 of antimicrobial therapy * Patient underwent I&D on 02/24/17 * Recent outpatient treatment with Keflex (did not tolerate due to GI sxs) and Bactrim * It has been determined that there is no evidence of osteomyelitis * Patient has been receiving x1 doses based on random levels due to JUANA * SCr has returned to baseline today allowing a maintenance regimen to begin Plan Vancomycin IV * Goal trough level for cellulitis: 10-15 mcg/mL * Once daily doses over the last 2 days have produced therapeutic levels * Rec'd Vancomycin 1500mg IV x 1 dose today while awaiting discharge or change to doxycycline * Decision made to continue IV Vancomycin as outpatient due to pt's response to tx * Outpatient Regimen Recommended: Vancomycin 1750mg IV q24h with trough checks every few days * Less than traditional dose and/or extended dosing interval selected due to likelihood of drug accumulation in obese patient/CKD * Pharmacy is able to continue managing dose if patient uses [facility] Pharmacy will continue to follow and will adjust dose/frequency as necessary. Thank you.
[2017-02-28 15:22] VITALS: BP 123/72; PULSE 68; TEMP 36.5; O2SAT 94
--- NOTE | 2017-02-28 18:21 | Progress Note ---
Subjective Date of Service: Feb 28, 2017. Subjective Pt evaluation today including: conversation w/ patient, physical exam, chart review, lab review, review of inpatient medication list Review of Systems Constitutional: No see HPI, No fever, No chills, No sweats, No weight loss, No weakness, No fatigue, No problem reported Eyes: No see HPI, No worsening of vision, No eye pain, No redness, No discharge , No diplopia, No problem reported ENT: No see HPI, No hearing loss, No unusual epistaxis, No nasal symptoms, No sore throat, No tinnitus, No dental problems, No trouble swallowing, No problem reported Respiratory: No see HPI, No cough, No sputum, No wheezing, No shortness of breath, No dyspnea on exertion, No dyspnea at rest, No hemoptysis, No problem reported Cardiac: No see HPI, No chest pain, No orthopnea, No PND, No edema, No claudication, No palpitations, No problem reported Breast: No see HPI, No breast lump, No change in shape, No nipple discharge, No breast pain, No problem reported Abdomen: No see HPI, No pain, No nausea, No vomiting, No diarrhea, No constipation, No GI bleeding, No problem reported Musculoskeletal: No see HPI, No joint pain, No muscle pain, No swelling, No calf pain, No problem reported Male : No see HPI, No dysuria, No urinary frequency, No incontinence, No nocturia more than once/night, No slowing stream, No hematuria, No sexual dysfunction, No problem reported Neurologic: No see HPI, No memory loss, No paralysis, No weakness, No numbness/ tingling, No vertigo, No balance problems, No problem reported Psychiatric: No see HPI, No depression symptoms, No anhedonism, No anxiety, No insomnia, No substance abuse, No problem reported Heme: No see HPI, No abnormal bleeding/bruising, No clotting problems, No swollen lymph nodes, No night sweats, No problem reported Endo: No see HPI, No fatigue, No excessive thirst, No excessive urination, No problem reported Skin: No see HPI, No rash, No itch, No new/changing skin lesions, No color change, No bleeding, No problem reported Objective Vital Signs Date Time Temp Pulse Resp B/P (MAP) Pulse Ox O2 Delivery O2 Flow Rate FiO2 02/28/17 16:25 Room Air 02/28/17 15:22 36.5 68 18 123/72 (89) 94 Room Air 02/28/17 08:00 Room Air 02/28/17 07:28 36.4 66 18 139/71 (93) 92 Room Air 02/27/17 23:45 Room Air 02/27/17 23:14 36.5 76 16 141/84 (103) 94 Room Air Physical Exam General Appearance: no apparent distress Eyes: normal inspection, EOMI ENT: normal ENT inspection, hearing grossly normal Neck: supple Respiratory/Chest: chest non-tender, lungs clear, normal breath sounds, no respiratory distress, no accessory muscle use Cardiovascular: regular rate, rhythm, no edema, no gallop, no JVD, no murmur Abdomen: normal bowel sounds, non tender, soft, no organomegaly, no pulsatile mass Extremities: normal range of motion, non-tender, normal inspection, no pedal edema, + pertinent finding (right stump is wrapped) Neurologic/Psychiatric: property field adjuster II-XII nml as tested, no motor/sensory deficits, alert, normal mood/affect, oriented x 3 Skin: normal color, warm/dry, no rash Laboratory Results Last 24 Hours Test 02/27/17 20:27 02/28/17 06:04 02/28/17 08:00 02/28/17 12:05 Bedside Glucose 183 mg/dl 147 mg/dl 150 mg/dl White Blood Count 4.27 K/uL Red Blood Count 3.52 M/uL Hemoglobin 10.6 g/dL Hematocrit 33.4 % Mean Corpuscular Volume 94.9 fL Mean Corpuscular Hemoglobin 30.1 pg Mean Corpuscular Hemoglobin Concent 31.7 g/dl Platelet Count 159 K/uL Mean Platelet Volume 9.1 fL Neutrophils (%) (Auto) 60.9 % Lymphocytes (%) (Auto) 27.4 % Monocytes (%) (Auto) 5.9 % Eosinophils (%) (Auto) 4.7 % Basophils (%) (Auto) 0.2 % Neutrophils # (Auto) 2.60 K/uL Lymphocytes # (Auto) 1.17 K/uL Monocytes # (Auto) 0.25 K/uL Eosinophils # (Auto) 0.20 K/uL Basophils # (Auto) 0.01 K/uL RDW Standard Deviation 45.9 fL RDW Coefficient of Variation 13.4 % Immature Granulocyte % (Auto) 0.9 % Immature Granulocyte # (Auto) 0.04 K/uL Creatinine 1.40 mg/dl Est Creatinine Clear Calc Drug Dose 65.7 ml/min Estimated GFR () 57.8 Estimated GFR (Non- 49.8 Random Vancomycin Level 13.3 mcg/ml Test 02/28/17 17:08 Bedside Glucose 150 mg/dl Assessment and Plan 71 years old man with Hxof DMII, COPD, HTN, CAD, ASHVIN and hypothyoidism recently had a table saw accident on his R thumb required multiple surgical procedures (repair of tendon followed by wound infection and I&D) presented for IV Abx R thumb post surgical wound infection / MRSA continue Vanco IV Dr. Steinberg consult appreciated, since no osteomyelitis, Dr. Sommer recommended doxycycline. Dr. Dougherty, stated that on IV Vanco patient improved significantly while he failed by mouth Bactrim as an outpatient, he would like patient to be on IV vancomycin for a few more days, arranging coming to the infusion center once daily to receive vancomycin dose, patient agreeable, discussed with pharmacy will be adjusting the Vanco dose at the infusion center, prescriptions are written for, paged Dr. Sommer to inform her with a new plan. Awaiting for her to call me. After 7 days of vancomycin IV he can be be switched to doxycycline as long as Dr. Sommer would like to treat for JUANA / CKD stage III continue holding nephrotoxic / lasix/losartan COPD w/o exacerbation continue Nebulizers ordered his home rescue inhaler DMII insulin req continue insulin / gabapentin for neuropathy HTN continue Coreg ASHVIN/ continue CPAP CAD/Dyslipidemia as per patient inoperable continue lipitor hawa with holding ASA for now Hypothyroidism / continue synthroid DVT prophylaxis start heparin SQ Code Status: FULL RESUSCITATION
[2017-02-28] MEDS: POLYETHYLENE (MIRALAX) 17 GM PACK PO PRN (20:34)
[2017-02-28 20:40] VITALS: BP 157/77; PULSE 74
[2017-02-28] MEDS: MONTELUKAST SOD 10 MG TAB PO SCH (20:45)
[2017-02-28] MEDS: ATORVASTATIN 40 MG TAB PO SCH (20:46)
[2017-02-28] MEDS: LORATADINE 10 MG TAB PO SCH (20:46)
[2017-02-28] MEDS: GABAPENTIN 100 MG CAP PO SCH (20:46)
[2017-02-28] MEDS: INSULIN GLARGINE SOLOSTAR 100 UNITS/ML 3 ML PEN SC SCH (21:59)
[2017-02-28 22:57] VITALS: BP 150/79; PULSE 76; TEMP 36.8; O2SAT 96
[2017-03-01] MEDS: LEVOTHYROXINE 150 MCG TAB PO SCH (05:41)
[2017-03-01 06:42] LABS: ESTIMATED AVERAGE GLUCOSE 177 mg/dl; HA1C FLAG Normal (Normal)
[2017-03-01 07:19] LABS: CREATININE 1.5 mg/dl (0.60-1.40)
[2017-03-01 07:34] VITALS: BP 139/61; PULSE 70; TEMP 36.5; O2SAT 95
[2017-03-01] MEDS: BUDESONIDE/FORMOTEROL FUMARATE 160/4.5 60 PUFFS/INHALER INH SCH (07:56)
[2017-03-01] MEDS: ALBUTEROL HFA 8 GM INHALER INH PRN (07:56)
[2017-03-01] MEDS: SODIUM CHLORIDE 0.9% 1000ML 1,000 ML IV SCH (09:19)
[2017-03-01] MEDS: GABAPENTIN 400 MG CAP PO SCH ×2 (09:20→14:03)
[2017-03-01] MEDS: ALLOPURINOL 300 MG TAB PO SCH (09:20)
[2017-03-01] MEDS: POTASSIUM CHLORIDE 10 MEQ TABCR PO SCH (09:20)
[2017-03-01] MEDS: PANTOprazole SOD 40 MG TAB PO SCH (09:20)
[2017-03-01] MEDS: CARVEDILOL 12.5 MG TAB PO SCH (09:20)
[2017-03-01] MEDS: DOCUSATE SODIUM 100 MG CAP PO SCH (09:21)
[2017-03-01] MEDS: INSULIN ASPART 100 UNITS/ML 3 ML PEN SC SCH ×2 (09:23→12:56)
[2017-03-01] MEDS: HEPARIN SOD 5000 UNIT/0.5 ML CARP SQ SCH (09:24)
[2017-03-01] MEDS ORDERED: VANCOMYCIN TROUGH SCH (09:30)
[2017-03-01] MEDS ORDERED: VANCOMYCIN INJ 1,750 MG in SODIUM CHLORIDE 0.9% 500ML 500 ML IV SCH ×4 (10:00)
--- NOTE | 2017-03-01 10:49 | Pharmacy Progress Note ---
Pharmacy Abx Dose Progress Nt Date of Service Mar 01, 2017. Pharmacy Dosing Scope The patient is currently receiving the following antimicrobial agents per Pharmacy consult: Vancomycin 1750 mg IV every 24 hours for thumb cellulitis Objective Height (Feet): 5 Height (Inches): 10.00 Weight (Kilograms): 134.000 Vital Signs (Past 12Hrs) Vital Signs Past 12 Hours Date Time Temp Pulse Resp B/P (MAP) Pulse Ox O2 Delivery O2 Flow Rate FiO2 03/01/17 07:45 Room Air 03/01/17 07:34 36.5 70 19 139/61 (87) 95 Room Air 02/28/17 23:45 Room Air 02/28/17 22:57 36.8 76 16 150/79 (102) 96 Room Air Micro Results Date/Time Source Procedure Growth Status 02/26/17 17:27 Blood Blood Culture - Preliminary NO GROWTH TO DATE. Resulted 02/26/17 17:10 Blood Blood Culture - Preliminary NO GROWTH TO DATE. Resulted Risk Factors for Resistance * Antimicrobial use within the last 90 days outpatient Keflex and Bactrim Assessment & Plan Assessment 71 year old male receiving IV Vancomycin for treatment of thumb cellulitis, blood cultures show no growth to date, but Dr Martinez would like to complete 7 days of IV Vancomycin. Therapy will be completed through [facility] for last 3 doses as patient is to be discharged today. Day # 4/7 of IV Vancomycin antimicrobial therapy per Dr Martinez Plan Vancomycin IV * Trough level of 8.7 mcg/mL is subtherapeutic * Change to 2000 mg IV every 24 hours (1750mg dose already hung, will give an additional 250mg IV today after bag has infused) * Goal trough level for cellulitis : ~15 mcg/mL * Patient to continue IV Vancomycin daily at [facility] - recommend dose of 2000mg IV daily at 0800 for 3 more days, last day of IV Vancomycin therapy = 03/04/17. Pharmacy will continue to follow and will adjust dose/frequency as necessary. Thank you.
[2017-03-01] MEDS ORDERED: VANC1INJ94 IV (11:22)
[2017-03-01] MEDS ORDERED: DXY100 PO (11:22)
--- NOTE | 2017-03-01 11:32 | Discharge Instructions ---
Discharge Instructions Date of Service Mar 01, 2017. Admission Reason for Admission: Cellulitis Of Right Thumb And Hand Discharge Discharge Diagnosis / Problem: Right Thumb Cellulitis/Infection - MRSA Discharge Goals Goal(s): Decrease discomfort, Improve function, Increase independence Activity Recommendations Activity Limitations: resume your previous activity . Instructions / Follow-Up Instructions / Follow-Up R Thumb Cellulitis - MRSA and Extensor Tendon Rupture S/P Repair: Failed Keflex and Bactrim - You will receive Vancomycin at the [facility] here at the hospital for the next 3 days. After your last dose at the [facility] please start Doxycycline 100 mg twice a day for 7 days. You will be provided with a script - Per orthopedic doctors -- FOLLOW UP WITH DR. VILLALOBOS IN 7-10 DAYS -- KEEP DRESSING CLEAN AND DRY Home Medications: - Continue home medications as previously prescribed. Reasons to Return: - Please return if your thumb worsens - redness, drainage, or increased pain Current Hospital Diet Patient's current hospital diet: Diabetes Type 2 Diet, AHA Diet (Heart Healthy) Discharge Diet Recommended Diet: AHA Diet (Heart Healthy), Diabetes Type 2 Diet Pending Studies Studies pending at discharge: no Laboratory Results Hemoglobin A1c Test 02/28/17 06:04 Range/Units Estimated Average Glucose 177 mg/dl Hemoglobin A1c 7.8 H 4.5-5.6 % Medical Emergencies . Who to Call and When: Medical Emergencies: If at any time you feel your situation is an emergency, please call 911 immediately. . Non-Emergent Contact Non-Emergency issues call your: Primary Care Provider Call Non-Emergent contact if: you have a fever, your pain is concerning you, you have any medication questions . . "Provider Documentation" section prepared by Ila Victor. . Customer Marketing Manager Recommendations Customer Marketing Manager Recommendations: FOLLOW UP WITH DR. VILLALOBOS IN 7-10 DAYS KEEP DRESSING CLEAN AND DRY ANTIBIOTICS PER DR. ROCK RECOMMENDATIONS. VTE Core Measure Inpt VTE Proph given/why not?: Aleksandr Hartley, SCD's
[2017-03-01 11:45] VITALS: BP 139/61; PULSE 70; TEMP 36.5; O2SAT 95
[2017-03-01] MEDS ORDERED: VANCOMYCIN IV SCH (13:00)
[2017-03-01] MEDS ORDERED: SODIUM CHLORIDE 0.9% IV SCH (13:00)
--- NOTE | 2017-03-01 13:12 | Discharge Summary ---
Discharge Summary Date of Service Mar 01, 2017. Discharge Summary Admission Date: Feb 26, 2017 at 14:57 Discharge Date: Mar 01, 2017 Discharge Disposition: Home Principal Diagnosis: R Thumb Cellulitis Problems/Secondary Diagnoses: 1. T2DM 2. CAD - 3 vessel disease - multiple consultations but unable to stent 3. COPD 4. Possible CKD Stage III Immunizations: Have You Had Influenza Vaccine: Unknown History of Tetanus Vaccine?: Unknown History of Pneumococcal: Unknown History of Hepatitis B Vaccine: Unknown Procedures: RIGHT AND 3 VIEWS FINDINGS: There is no fracture or dislocation. Soft tissue swelling within the right thumb. No underlying cortical destruction to suggest osteomyelitis. Questionable linear lucency at the head of the proximal phalanx of the thumb may be due to the overlapping bony structures. No radiopaque foreign bodies. IMPRESSION: Soft tissue swelling within the right thumb consistent with a cellulitis. No underlying bony destruction to suggest osteomyelitis. Consultations: 1. Orthopedic Surgery - Dr. Martinez 2. Infectious Disease - Dr. Sommer Medication Reconciliation New Medications: Doxycycline Hyclate (Doxycycline Hyclate) 100 Mg Cap 100 MG PO BID for 7 Days, #14 TABS Lactobacillus Acidophilus (Lactinex Granules) 1 Gm Pack 1 PKT OR TID for 30 Days Vancomycin HCl in Sodium Chlor (VANCOMYCIN in NSS) 1 Inj Inj 1750 MG IV Q24 for 3 Days, BAG In ml NSS Continued Medications: Albuterol Sulfate (Proair Hfa) 108 Mcg/ Aer 1 INHA INH Q4H PRN for PRN Allopurinol (Zyloprim) 300 Mg Tab 300 MG PO QAM, TAB Aspirin (Aspirin) 81 Mg Tab 81 MG PO QPM Atorvastatin (Atorvastatin Calcium) 20 Mg Tab 40 MG PO QPM Carvedilol (Coreg) 12.5 Mg Tab 12.5 MG PO BID, TAB Fluticasone Prop/Salmeterol (Advair Diskus 500/50 60 Dose) 1 Ea Aerp 1 PUFF INH BID, INHALER Fluticasone Propionate (Nasal) (Flonase) 50 Mcg/Act Spr 1-2 SPRAYS DERRICK DAILY PRN for PRN Furosemide (Lasix) 40 Mg Tab 40 MG PO QAM, TAB Gabapentin (Neurontin) 300 Mg Cap 300 MG PO TID, CAP Glimepiride (Glimepiride) 2 Mg Tab 4 MG PO NOON/PM Levothyroxine Sodium (Synthroid) 150 Mcg Tab 150 MCG PO QPM, TAB Loratadine (Claritin) 10 Mg Tab 10 MG PO QPM, TAB Lorazepam (Lorazepam) 1 Mg Tab 1 MG PO Q6H PRN for Anxiety, #30 TAB Nitroglycerin (Nitrostat) 0.4 Mg Sub 0.4 MG UT PRN, BTL Olmesartan Medoxomil (Benicar) 20 Mg Tab 20 MG PO QPM, TAB Omeprazole (Omeprazole) 20 Mg Tab 40 MG PO QAM Oxycodone HCl (Oxycodone HCl) 5 Mg Tab 5-10 MG PO Q4H PRN for Pain, #90 TAB Oxycodone/Acetaminophen 5MG/325MG (Percocet 5MG/325MG) Tab 1 TABLET PO Q8H PRN for Pain, TAB PAIN Potassium Chloride (K-Tabs) 10 Meq Tab 10 MEQ PO QAM Sitagliptin-Metformin Hcl (Janumet) 1 Tab Tab 1 TAB PO BID DOSE= [Miralax] () 1 DOSE PO NOON Discharge Exam Review of Systems: Constitutional: No fever, No chills ENT: No nasal symptoms, No sore throat, No trouble swallowing Respiratory: No dyspnea on exertion, No dyspnea at rest Cardiovascular: No chest pain, No palpitations Abdomen: No pain, No nausea, No vomiting, No diarrhea, No constipation Musculoskeletal: + joint pain (intermittent R thumb pain), + swelling ( chronic bilateral lower extremity), No calf pain Genitourinary - Male: No dysuria Hematologic / Lymphatic: No abnormal bleeding/bruising, No clotting problems Integumentary: No rash Physical Exam: General Appearance: WD/WN, no apparent distress, + obese Eyes: sclerae normal ENT: hearing grossly normal Neck: supple, no JVD, trachea midline Respiratory/Chest: no respiratory distress, no accessory muscle use, + wheezing Cardiovascular: regular rate, rhythm, no gallop, no murmur Abdomen / GI: normal bowel sounds, non tender, soft Extremities: + swelling (1-2+ pitting edema) Neurologic/Psychiatric: alert, oriented x 3 Skin: normal color, warm/dry, + pertinent finding (erythema reduced of the R thumb) Hospital Course ADMISSION: Mr. Whitt is a 71 y/o male with PMHx of T2DM, COPD, and CAD who is a direct admission from [facility] for R thumb cellulitis. Patient sustained a laceration to the thumb from a saw approx. around January 22. He initially presented to [facility] for suturing. He did sustain a ruptured extensor tendon that was repair. Unfortunately he developed infection and underwent further repair of the tendon. He was initially placed on Keflex and developed significant diarrhea and minimal improvement in erythema of the thumb. He was then placed on Bactrim without relief of symptoms. He underwent I& D on 02/24 which revealed MRSA in deep wound cultures. He is experiencing pain in the thumb that is relieved with [place]. He denies fever/chills, CP, SOB, abdominal pain, N/V, dysuria, constipation/diarrhea. HOSPITAL COURSE: Mr. Whitt was a direct admission from [facility] for R Thumb Cellulitis which failed outpatient treatment with Keflex and Bactrim. XR did not reveal bony involvement suggesting osteomyelitis. He was initiated on Vancomycin for MRSA. He will continue Vancomycin infusions x 3 days in the [facility] then convert to Doxycycline 100 mg BID x 7 days to complete a 14 day course. He will continue to follow-up with Dr. Martinez. Upon admission, Cr noted to be 2.1 but improved with IVF and initial holding of Lasix and Losartan. These will be continued at D/C. All other home medications were continued as previously prescribed. He is optimal for D/C home with outpatient follow-up. Total Time Spent: Greater than 30 minutes This includes examination of the patient, discharge planning, medication reconciliation, and communication with other providers. Discharge Instructions Please refer to the electronic Patient Visit Report (Discharge Instructions) for additional information. Additional Copies To Christopher Lemon M.D.
[2017-03-02] MEDS ORDERED: VANCOMYCIN INJ 2,000 MG in SODIUM CHLORIDE 0.9% 500ML 500 ML IV SCH (08:00)
[2017-03-02] MEDS ORDERED: PRED50TA PO (12:03)
== END 2017-03-01 14:50 | disposition home or self-care (01) | DRG 863 ==
LOC: C.MSN 14:57
PROVIDERS: ADMIT Hospitalist; ATTEND Internal Medicine
DX: T81.4XXA Infection following a procedure, initial encounter (principal); N17.9 Acute kidney failure, unspecified; L03.011 Cellulitis of right finger; B95.62 Methicillin resistant Staphylococcus aureus infection as the cause of diseases classified elsewhere; I12.9 Hypertensive chronic kidney disease with stage 1 through stage 4 chronic kidney disease, or unspecified chronic kidney disease; N18.3 Chronic kidney disease, stage 3 (moderate); J44.9 Chronic obstructive pulmonary disease, unspecified; I25.10 Atherosclerotic heart disease of native coronary artery without angina pectoris; G47.33 Obstructive sleep apnea (adult) (pediatric); E03.9 Hypothyroidism, unspecified; E11.22 Type 2 diabetes mellitus with diabetic chronic kidney disease; E11.40 Type 2 diabetes mellitus with diabetic neuropathy, unspecified; M10.9 Gout, unspecified; Y83.8 Other surgical procedures as the cause of abnormal reaction of the patient, or of later complication, without mention of misadventure at the time of the procedure; Z79.82 Long term (current) use of aspirin; Z79.899 Other long term (current) drug therapy; Z87.891 Personal history of nicotine dependence; S61.011A Laceration without foreign body of right thumb without damage to nail, initial encounter; X58.XXXA Exposure to other specified factors, initial encounter

== ENCOUNTER → 2017-03-03 | Outpatient (CLI) | payer OTHER, MEDICARE ==
[~2017-03-03] MED LIST changes: +DXY100 PO; +LCTXP OR; +PRED50TA PO; +VANC1INJ94 IV
[2017-03-03 13:47] LABS: ESTIMATED AVERAGE GLUCOSE 174 mg/dl; HA1C FLAG Normal (Normal)
[2017-03-03 13:59] LABS: BLOOD UREA NITROGEN 25 mg/dl (7-18); BUN/CREATININE RATIO 15.9 (10-20); CALCIUM 9.2 mg/dl (8.5-10.1); CARBON DIOXIDE 25 mmol/L (21-32); CHLORIDE 104 mmol/L (98-107); GLUCOSE 209 mg/dl (70-99); POTASSIUM 3.7 mmol/L (3.5-5.1); SODIUM 138 mmol/L (136-145)
--- NOTE | 2017-03-31 07:16 | CODING QUERY MEDICAL NECESSITY ---
CQSUPPORTING DIAGNOSIS NEEDED A supporting diagnosis is required for the test/procedure performed on this patient in order for us to be reimbursed by the patient's insurance. Please provide a supporting diagnosis for the following test/procedure listed below next to the test name along with your signature. *If there is no additional diagnosis for this patient that would support the following test/procedure please document that below next to the test/procedure. Test(s)/Procedure(s) that require a supporting diagnosis: SAMY 03/03/17 GLYCATED HEMOGLOBIN TEST Provider Signature: Date: Thank you Perri Sal[facility] Health Information Management Once completed, please kindly fax back to [phone] For questions please call [phone]
== END | disposition home or self-care (01) ==
LOC: C.LABMFLN 09:25
PROVIDERS: ATTEND Family Medicine
DX: N18.3 Chronic kidney disease, stage 3 (moderate) (principal); M10.9 Gout, unspecified; J45.909 Unspecified asthma, uncomplicated; E03.9 Hypothyroidism, unspecified; E11.9 Type 2 diabetes mellitus without complications

== ENCOUNTER → 2017-04-30 | Outpatient (CLI) | payer MEDICARE ==
[2017-05-03 11:45] LABS: O&P GIARDIA AG NOT DETECTED (NOT DETECTED)
== END | disposition home or self-care (01) ==
LOC: C.LABMFLN 09:03
PROVIDERS: ATTEND Family Medicine
DX: Z00.00 Encounter for general adult medical examination without abnormal findings (principal); R19.7 Diarrhea, unspecified

== ENCOUNTER → 2017-07-27 | Outpatient (CLI) | payer OTHER, MEDICARE ==
[~2017-07-27] MED LIST changes: -LPT/20 PO; +LPT20 PO
[2017-07-27 13:15] LABS: HEMOGLOBIN A1C 9.4 % (4.5-5.6)
[2017-07-27 13:17] LABS: CREATININE RANDOM URINE < 13.0 mg/dl
== END | disposition home or self-care (01) ==
LOC: C.LABMFLN 09:44
PROVIDERS: ATTEND Family Medicine
DX: E11.9 Type 2 diabetes mellitus without complications (principal)

== ENCOUNTER → 2017-10-01 | Outpatient (CLI) | payer OTHER, MEDICARE ==
[~2017-10-01] MED LIST changes: +BNC/20 PO; -OLME1TAB11 PO
[2017-10-01 13:02] LABS: BASO % 0.5 %; BASO ABS # 0.03 K/uL (0-0.2); EOS % 4.8 %; EOS ABS # 0.28 K/uL (0-0.5); HEMATOCRIT 37.6 % (42-52); HEMOGLOBIN 12.5 g/dL (14.0-18.0); IG# 0.03 K/uL (0.00-0.02); LYMPH % 22.6 %; LYMPH ABS # 1.31 K/uL (1.2-3.4); MEAN CELL VOLUME 93.8 fL (80-100); MEAN CORPUSCULAR HEMOGLOBIN 31.2 pg (25-34); MEAN CORPUSCULAR HGB CONC 33.2 g/dl (32-36); MEAN PLATELET VOLUME 10.7 fL (7.4-10.4); MONO % 6.2 %; MONO ABS # 0.36 K/uL (0.11-0.59); NEUT % 65.4 %; NEUT ABS # 3.78 K/uL (1.4-6.5); PLATELET COUNT 200 K/uL (130-400); RED CELL DISTRIBUTION WIDTH CV 13.8 % (11.5-14.5); RED CELL DISTRIBUTION WIDTH SD 47.1 fL (36.4-46.3); WHITE BLOOD COUNT 5.79 K/uL (4.8-10.8)
[2017-10-01 13:37] LABS: HEMOGLOBIN A1C 8.3 % (4.5-5.6)
[2017-10-01 15:42] LABS: ALBUMIN 3.7 gm/dl (3.4-5.0); ALT/SGPT 27 U/L (12-78); BLOOD UREA NITROGEN 19 mg/dl (7-18); CALCIUM 8.8 mg/dl (8.5-10.1); CARBON DIOXIDE 28 mmol/L (21-32); CREATININE 1.61 mg/dl (0.60-1.40); GLUCOSE 251 mg/dl (70-99); POTASSIUM 3.6 mmol/L (3.5-5.1); SODIUM 139 mmol/L (136-145)
[2017-10-01 15:52] LABS: ALKALINE PHOSPHATASE 74 U/L (45-117); AST/SGOT 21 U/L (15-37); TOTAL PROTEIN 7.5 gm/dl (6.4-8.2)
== END | disposition home or self-care (01) ==
LOC: C.LABMFLN 10:08
PROVIDERS: ATTEND Family Medicine
DX: R60.0 Localized edema (principal); E11.9 Type 2 diabetes mellitus without complications; E03.9 Hypothyroidism, unspecified; E78.00 Pure hypercholesterolemia, unspecified; E66.01 Morbid (severe) obesity due to excess calories

== ENCOUNTER → 2017-10-13 | Outpatient (CLI) | payer OTHER, MEDICARE ==
[2017-10-13 14:01] LABS: BLOOD UREA NITROGEN 22 mg/dl (7-18); CALCIUM 8.8 mg/dl (8.5-10.1); CARBON DIOXIDE 29 mmol/L (21-32); CREATININE 1.59 mg/dl (0.60-1.40); GLUCOSE 159 mg/dl (70-99); POTASSIUM 3.7 mmol/L (3.5-5.1); SODIUM 140 mmol/L (136-145)
== END | disposition home or self-care (01) ==
LOC: C.LABMFLN 07:46
PROVIDERS: ATTEND Family Medicine
DX: E03.9 Hypothyroidism, unspecified (principal); E11.9 Type 2 diabetes mellitus without complications; E78.00 Pure hypercholesterolemia, unspecified; E66.01 Morbid (severe) obesity due to excess calories; R60.0 Localized edema

== ENCOUNTER → 2017-11-02 | Outpatient (CLI) | payer OTHER, MEDICARE ==
[2017-11-02 13:01] LABS: BASO % 0.6 %; BASO ABS # 0.04 K/uL (0-0.2); EOS % 10.9 %; EOS ABS # 0.71 K/uL (0-0.5); HEMATOCRIT 37.3 % (42-52); HEMOGLOBIN 12.2 g/dL (14.0-18.0); IG# 0.04 K/uL (0.00-0.02); LYMPH % 21.9 %; LYMPH ABS # 1.43 K/uL (1.2-3.4); MEAN CELL VOLUME 93.3 fL (80-100); MEAN CORPUSCULAR HEMOGLOBIN 30.5 pg (25-34); MEAN CORPUSCULAR HGB CONC 32.7 g/dl (32-36); MEAN PLATELET VOLUME 10.3 fL (7.4-10.4); MONO ABS # 0.39 K/uL (0.11-0.59); NEUT ABS # 3.91 K/uL (1.4-6.5); PLATELET COUNT 215 K/uL (130-400); RED CELL DISTRIBUTION WIDTH SD 47.7 fL (36.4-46.3); WHITE BLOOD COUNT 6.52 K/uL (4.8-10.8)
[2017-11-02 14:14] LABS: ALBUMIN 3.8 gm/dl (3.4-5.0); ALT/SGPT 22 U/L (12-78); AST/SGOT 21 U/L (15-37); BLOOD UREA NITROGEN 23 mg/dl (7-18); CALCIUM 8.7 mg/dl (8.5-10.1); CARBON DIOXIDE 27 mmol/L (21-32); CREATININE 1.54 mg/dl (0.60-1.40); GLUCOSE 105 mg/dl (70-99); POTASSIUM 3.9 mmol/L (3.5-5.1); SODIUM 140 mmol/L (136-145)
[2017-11-02 14:15] LABS: ALKALINE PHOSPHATASE 77 U/L (45-117)
== END | disposition home or self-care (01) ==
LOC: C.LABMFLN 07:38
PROVIDERS: ATTEND Internal Medicine Pulmonary Disease
DX: I10 Essential (primary) hypertension (principal); J45.901 Unspecified asthma with (acute) exacerbation

== ENCOUNTER 2017-11-10 07:19 | Day surgery (SDC) | payer OTHER, MEDICARE ==
[~2017-11-10] VITALS: Ht 179.1 cm; Wt 136.1 kg
[2017-11-10] VITALS (8 sets, daily range): BP systolic 102–143; BP diastolic 53–71; PULSE 71–76; TEMP 36.4–36.6; O2SAT 92–96; Ht 179.1 cm; Wt 136.1 kg
--- NOTE | 2017-11-10 07:42 | History & Physical Bridge Note ---
H&P Re-Evaluation Bridge Note: I have examined the patient, reviewed the History & Physical and in the interval since the performance of the History & Physical I have noted the following changes of clinical significance: No changes noted
--- NOTE | 2017-11-10 07:43 | Pre Sedation Assessment ---
Pre Sedation Assessment General Date of Sedation: November 10, 2017. Pre-Sedation Airway Assessment Smoking Status: Former Smoker Mallampati Classification: Class II ASA Classification: Class II Notes The planned sedation has been discussed with the patient. Informed Consent was obtained. I have identified the patient, determined the appropriateness of sedation and have assessed the patient immediately prior to the procedure. All medicine(s) and interventions are by my order.
[2017-11-10] MEDS ORDERED: albuterol nebulizer (08:48)
[2017-11-10] MEDS ORDERED: SYMIN160 INH (08:48)
[2017-11-10] MEDS ORDERED: HYZ/50125 PO (08:48)
[2017-11-10] MEDS ORDERED: MONT1TAB5 PO (08:48)
[2017-11-10] MEDS ORDERED: onglyza (08:48)
[2017-11-10] MEDS ORDERED: INSDGI SC (08:48)
[2017-11-10] MEDS ORDERED: METF-384 PO (08:48)
[2017-11-10] MEDS ORDERED: NURSING VERBAL MED ORDER ONE ×2 (09:45→10:30)
[2017-11-10] MEDS ORDERED: OXYMETAZOLINE HCL 0.05% NA SPR 15 ML BTL ONE (10:07)
[2017-11-10] MEDS ORDERED: LIDOCAINE 4% INH SOLN 4 ML BTL INH ONE (10:07)
[2017-11-10] MEDS ORDERED: MIDAZOLAM HCL 5 MG/ML 1 ML VIAL IV ONE (10:20)
[2017-11-10] MEDS ORDERED: LIDOCAINE HCL 2% LOCAL 50ML VIAL INSTIL ONE (10:23)
[2017-11-10] MEDS ORDERED: LEVALBUTEROL 1.25MG/3ML NEB INH ONE (10:33)
--- NOTE | 2017-11-10 10:42 | [facility] Operative Report ---
Operative Report Operative Date November 10, 2017. Pre-Operative Diagnosis Chronic Mucopurulent Bronchitis Post-Operative Diagnosis Same Procedure(s) Performed FOB w BAL Surgeon Dr Detxer Findings Chronic Mucopurulent Bronchitis Specimens RLL bronchial wash Complication(s) None Disposition I attest to the content of the Intraoperative Record and any orders documented therein. Any exceptions are noted below.
--- NOTE | 2017-11-10 10:43 | Post Sedation Assessment ---
Post Sedation Assessment General Date of Sedation November 10, 2017. Vital Signs: Vital Signs Past 12 Hours Date Time Temp Pulse Resp B/P (MAP) Pulse Ox O2 Delivery O2 Flow Rate FiO2 11/10/17 10:35 79 24 117/60 95 Mask 6 11/10/17 10:30 87 24 113/67 92 Oxymask 6 11/10/17 10:25 84 20 130/64 93 Oxymask 6 11/10/17 10:20 78 20 120/71 96 Oxymask 6 11/10/17 10:15 71 24 122/64 100 Oxymask 6 11/10/17 10:10 67 24 139/70 97 Room Air 11/10/17 09:59 71 16 93 Room Air 11/10/17 07:45 36.6 75 20 143/69 (93) 94 Room Air Post Procedure Recovery Score Activity: (2) Moves 4 extremities * Respiration: (2) Deep breath/cough Circulation: (2) +/-20% PreAnes Value Consciousness: (2) Fully Awake Oxygen Saturation: (1) O2 needed for >90% Post Anesthesia Score: 9 Discharge Sedation Level of Care: Fast Track Phase II Post Sedation Plan On clinical assessment, the patient appears to have tolerated the sedation without complications. Patient is recovering as anticipated. Patient will continue to be monitored by nursing and may be discharged when sedation discharge criteria are met per below protocol. Upon Completions of procedure and additional 15 minutes continue every 5 minute vital signs and the P.A.R. score; then discharge to a Phase I or Fast Track to Phase II per the following guidelines: * Discharge Patient to appropriate Phase II area if PAR is 8 or greater or return to pre- procedure baseline. The post - procedure orders will be as directed. * If PAR score is less than 8 or not return to pre-procedure baseline then patient will follow Phase I monitoring till PAR is reached for Phase II. The Phase I may be done in procedure room or may call to secure a Phase I area. * If naloxone or flumazenil are used for reversal, hold in Phase I for an additional 60 -120 minutes before discharge to Phase II. Please call the Sedation Physician to re-evaluate and complete post-note for discharge to Phase II area. Do NOT discharge from procedure sedation or Phase 1 until post- sedation evaluation note is complete by procedure /sedation MD Sedation Discharge Instructions to be given to the patient at discharge to home.
--- NOTE | 2017-11-10 10:52 | Discharge Instructions ---
Discharge Instructions Date of Service November 10, 2017. Admission Reason for Admission: Asthma, Cough Discharge Discharge Diagnosis / Problem: Chronic Mucopurulent Bronchitis Discharge Goals Goal(s): Diagnostic testing Activity Recommendations Activity Limitations: resume your previous activity Lifting Limitations: none Exercise/Sports Limitations: none May Resume Sexual Activity: when tolerated Shower/Bathe: no limitations Driving or Machine Use: no limitations none . Instructions / Follow-Up Instructions / Follow-Up ACTIVITY RECOMMENDATIONS: * Rest today, resume normal activity tomorrow. * Do not drive today. SPECIAL CARE INSTRUCTIONS: * Call your physician if you experience any chest or shoulder pain, fever, coughing, spitting up blood (more than 2 teaspoons) or excessive shortness of breath. * Remove dressing from IV site (where needle was placed into the vein) after 2 hours. Apply a warm, moist compress to site if irritation occurs. Call physician if site becomes red or painful to touch. FOLLOW UP VISIT: * Keep any scheduled doctor appointments. Current Hospital Diet Patient's current hospital diet: Regular Discharge Diet Recommended Diet: Regular Diet Fluid Restriction: None Procedures Procedures Performed: FOB w BAL Pending Studies Studies pending at discharge: no Laboratory Results Hemoglobin A1c Test 10/01/17 10:10 Range/Units Estimated Average Glucose 192 mg/dl Hemoglobin A1c 8.3 H 4.5-5.6 % Medical Emergencies . Who to Call and When: Medical Emergencies: If at any time you feel your situation is an emergency, please call 911 immediately. . Non-Emergent Contact Non-Emergency issues call your: Official Court Interpreter Call Non-Emergent contact if: temperature is above 101 . . "Provider Documentation" section prepared by Osiel Dexter. .
[2017-11-10] MEDS ORDERED: DEXTROSE 5% 1000ML 1,000 ML IV SCH (11:00)
--- NOTE | 2017-11-10 12:15 | OPERATIVE REPORT ---
DATE OF OPERATION: 11/10/2017 PROCEDURE: Fiberoptic bronchoscopy with bronchoalveolar lavage. INDICATIONS: COPD/chronic mucopurulent bronchitis. ANESTHESIA PREOPERATIVELY: None. ANESTHESIA DURING PROCEDURE: 5 mg IV Versed, 20 mL of 2% Xylocaine spray above and below the cords, 4% viscous Xylocaine intranasally. PROCEDURE IN DETAIL: Prior to the procedure, the patient was evaluated in the same day unit. He was felt to be mildly bronchospastic and was given 80 mg of IV Solu-Medrol and nebulizer treatment with DuoNeb solution 30 minutes before the procedure. He was taken to the x-ray suite and was prepped and draped in the usual fashion. The fiberoptic bronchoscope was inserted into the right naris without difficulty and passed to the level of the true vocal cords without difficulty. The nasopharynx was extremely narrowed consistent with his diagnosis of obstructive sleep apnea. The cords appeared to approximate normally with phonation without evidence of lesions or paralysis and were anesthetized with 2% Xylocaine spray. The scope was then introduced into the trachea which showed mucoviscous secretion adherent to the proximal trachea to the left lateral wall that was lavaged until clear. The scope was then passed to the level of the eric which was sharp and crisp and then we advanced to the right and left tracheobronchial tree, but the right mainstem bronchus was explored initially and no endobronchial lesion was seen. The right upper lobe, the apical posterior, anterior, and axillary segments, bronchus intermedius, right middle lobe, and medial lateral segments and all basilar segments of right lower lobe were found to be free of endobronchial lesions. Thick mucoviscous secretion was lavaged from all lobar and segmental bronchi. The left tracheobronchial tree was explored and similar findings were noted with thick mucopurulent secretion lavaged from virtually all lobar and segmental bronchi until clear. Bronchial crypts and clefts were visible throughout the right and left tracheobronchial tree. No brushings or biopsies were deemed necessary. Fluoroscopy was not utilized. The procedure was terminated. The patient was given another treatment of DuoNeb solution and then transferred to the medical treatment unit, hemodynamically stable, no signs of respiratory compromise. We will await microbiological and cytologic examination of the bronchial washings. I attest to the content of the Intraoperative Record and any orders documented therein. Any exception s are noted below.
[2017-11-12 10:58] LABS: HERPES SIMPLEX VIRUS CULT NOT ISOLATED (NOT ISOLATED)
== END 2017-11-10 13:00 | disposition home or self-care (01) ==
LOC: C.ACU 07:19
PROVIDERS: ATTEND Internal Medicine Pulmonary Disease
DX: J41.1 Mucopurulent chronic bronchitis (principal); J45.40 Moderate persistent asthma, uncomplicated; G47.33 Obstructive sleep apnea (adult) (pediatric); N18.3 Chronic kidney disease, stage 3 (moderate); E66.01 Morbid (severe) obesity due to excess calories; I12.9 Hypertensive chronic kidney disease with stage 1 through stage 4 chronic kidney disease, or unspecified chronic kidney disease; I25.10 Atherosclerotic heart disease of native coronary artery without angina pectoris; E11.9 Type 2 diabetes mellitus without complications; E78.00 Pure hypercholesterolemia, unspecified; E03.9 Hypothyroidism, unspecified; Z90.89 Acquired absence of other organs; Z87.891 Personal history of nicotine dependence; Z79.82 Long term (current) use of aspirin; Z79.899 Other long term (current) drug therapy; Z79.4 Long term (current) use of insulin; Z79.84 Long term (current) use of oral hypoglycemic drugs